=== PATIENT | female | born 1975 | race Hispanic/Latino ===

== ENCOUNTER → 2023-11-16 08:35 | Outpatient (CLI) | payer OTHER, SELFPAY ==
--- NOTE | 2023-11-16 08:38 | DI.MG.S_ITS ---
BILATERAL DIGITAL SCREENING MAMMOGRAM 3D/2D WITH CAD: 11/16/2023 CLINICAL: Routine screening. Comparison is made to exams dated: 09/18/2022 mammogram, 07/29/2021 mammogram, and 07/22/2020 mammogram - outside location. There are scattered areas of fibroglandular density in both breasts (category b / 25%-50% glandular tissue). Current study was also evaluated with a Computer Aided Detection (CAD) system. No significant masses, calcifications, or other findings are seen in either breast. There has been no significant interval change. IMPRESSION: NEGATIVE There is no mammographic evidence of malignancy. A 1 year screening mammogram is recommended. Based on the Tyrer Cuzick model (a risk assessment model) the patient's lifetime risk is 7.9% and her 10 year risk is 1.8%. According to the ACR, ACS, and NCCN guidelines, an annual breast MRI exam along with mammogram is recommended if the patient's lifetime risk is 20% or greater. This exam was interpreted at Station ID: [id number]. NOTE: For mammograms, a report in lay terms will be sent to the patient. Approximately 15% of breast malignancies will not be visualized mammographically. In the management of a palpable breast mass, a negative mammogram must not discourage biopsy of a clinically suspicious lesion. Electronically Signed By: Nila Keith M.D., PH.D momo/janelle:11/16/2023 15:23:19 letter sent: Normal Exam ACR BI-RADS Category 1: Negative [id number]
== END ==
LOC: MAMMO 08:37
PROVIDERS: PCP Student in an Organized Health Care Education/Training Program; Referring Provider Student in an Organized Health Care Education/Training Program; Visit Provider Student in an Organized Health Care Education/Training Program
DX: Z12.31 Encounter for screening mammogram for malignant neoplasm of breast (principal); R92.323 Mammographic fibroglandular density, bilateral breasts
CPT/HCPCS: 77063; 77067

== ENCOUNTER → 2024-10-19 15:20 | Outpatient (CLI) | payer OTHER, SELFPAY ==
--- NOTE | 2024-10-19 15:22 | DI.CT.S_ITS ---
PROCEDURE: CT LUNG LOW DOSE SCREENING INDICATIONS: screening for lung cancer TECHNIQUE: Noncontrast 2.0-2.5 mm thick sections acquired from the pulmonary apices to the posterior costophrenic angles. 7 mm thick axial MIP, and 5 mm coronal and sagittal reformats were then acquired. For radiation dose reduction, the following was used: automated exposure control, adjustment of mA and/or kV according to patient size. COMPARISON: None. FINDINGS: Image quality: Diagnostic. Lower Neck: No enlarged lymph nodes. Thyroid: No thyroid nodules which require sonographic follow up, per consensus guidelines. Axillae: No enlarged lymph nodes. Chest Wall: Unremarkable. Bones: Unremarkable. Lungs and Pleura: No pneumothorax or pleural effusions. No consolidation or suspicious nodules. Heart: Heart size is normal. No pericardial effusion. Thoracic Vessels: The aorta and pulmonary arteries demonstrate normal size. Mediastinum and Mavis: No enlarged lymph nodes. Esophagus: No wall thickening. No hiatal hernia. Upper Abdomen: Visualized upper abdomen solid organs and bowel loops appear normal. IMPRESSION: No suspicious pulmonary nodules. LUNG-RADS 1; continued annual screening, if eligible. Clinically Significant Non-pulmonary Findings: None. Dictated by: Juan Calix M.D. on 10/19/2024 at 16:53 Approved by: Juan Calix M.D. on 10/19/2024 at 16:54
== END ==
PROVIDERS: PCP Nurse Practitioner Family; Referring Provider Nurse Practitioner Family; Visit Provider Nurse Practitioner Family
DX: Z12.2 Encounter for screening for malignant neoplasm of respiratory organs (principal)
CPT/HCPCS: 71271

== ENCOUNTER → 2025-01-09 17:20 | Outpatient (CLI) | payer OTHER, SELFPAY ==
--- NOTE | 2025-01-09 17:21 | DI.MG.S_ITS ---
MM screening mammo BI: 01/09/2025. BI-RADS: 1 CLINICAL: 49-year old female for bilateral screening mammogram. Tyrer-Cuzick lifetime risk of 6.1%. No personal or first-degree family history of breast cancer. PRIOR EXAMS 11/16/2023 outside priors 09/18/2022, and 07/29/2021. MAMMOGRAPHY TECHNIQUE: 2D and 3D (tomosynthesis) digital mammographic views obtained, with additional images as needed for full coverage. Current study was also evaluated with a Computer Aided Detection (CAD) system. DENSITY C. The breasts are heterogeneously dense, which may obscure small masses. MAMMOGRAPHY FINDINGS Bilateral: No suspicious mass, asymmetry, microcalcification, or other abnormality seen. No significant change from comparison. IMPRESSION: * No evidence of malignancy. RECOMMENDATIONS Bilateral * Annual screening mammography. OVERALL ASSESSMENT CATEGORY BI-RADS-1: Negative. The [employer] recommends annual screening mammography beginning at age 40 for women with average risk of breast cancer. ELECTRONICALLY SIGNED: Sally Verduzco M.D. on 01/10/2025 at 08:45:21 AM PT Interpreting Station ID: [id number]
== END ==
PROVIDERS: PCP Nurse Practitioner Family; Referring Provider Nurse Practitioner Family; Visit Provider Nurse Practitioner Family
DX: Z12.31 Encounter for screening mammogram for malignant neoplasm of breast (principal); R92.333 Mammographic heterogeneous density, bilateral breasts
CPT/HCPCS: 77063; 77067

== ENCOUNTER 2025-05-14 09:53 | Day surgery (SDC) | payer OTHER, SELFPAY ==
[2025-05-14 10:18] VITALS: BP 103/69; PULSE 63; RESP 16; TEMP 36.6; O2SAT 98
--- NOTE | 2025-05-14 10:55 | PM.HP.IH.1 ---
History of Present Illness History of Present Illness Date Patient Seen: 05/14/25 Chief complaint: Screening Colonoscopy [facility] Medical History (Updated 12/03/23 @ 20:35 by Francesca Bocanegra) Human papilloma virus Abnormal Pap smear of cervix Surgical History (Updated 12/03/23 @ 20:35 by Francesca Bocnaegra) History of section (~04/1997) Family History (Updated 12/03/23 @ 20:36 by Francesca Bocanegra) Father Hypertension Mother Diabetes mellitus Hyperlipidemia Brother Mental health problem Social History Smoking Status: Never smoker alcohol intake: current Meds Home Medications and Allergies Allergies Allergy/AdvReac Type Severity Reaction Status Date / Time No Known Drug Allergies Allergy Verified 05/14/25 10:16 Exam Vital Signs (past 8 hours): - 05/14/25 10:18 Temperature 97.8 F Pulse Rate 63 Respiratory Rate 16 Blood Pressure 103/69 Pulse Oximetry 98 Oxygen Delivery Method Room Air Oxygen Delivery Method Room Air Narrative Exam Narrative: Oropharynx free of lesions Assessment & Plan Assessment & Plan narrative: For screening colonoscopy. Risks, benefits, alternatives have been explained. Time-Based Coding :: [TOTAL MINUTES] spent with patient and on the chart (including review of chart, obtaining history, exam, reviewing outside data, placing orders, documenting exam and treatment plan, and counseling patient) on [DATE]. 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
--- NOTE | 2025-05-14 10:56 | PM.OP.COLON ---
Operative Date/Time/Diagnoses Date of procedure: 05/14/25 Time of procedure: 11:14 Pre-op diagnosis: See indication and findings Post-op diagnosis: same Procedure & Clinicians Study performed: Colonoscopy Same procedure(s) as scheduled: Yes Indications: Screening Surgeon: Ban Graff Anesthesia Type: Other Procedure Notes Procedure in detail: After informed consent was obtained the patient was placed in left lateral decubitus position. The video colonoscope was introduced the rectum slowly advanced cecum. Preparation was good. On slow withdrawal mucosa was carefully examined. The scope was removed. The patient tolerated procedure well. Blood loss none Complications none Sedation mac Findings 1. Normal colonoscopy to cecum Patient should have follow-up colonoscopy in 10 years
[2025-05-14] MEDS: LACTATED RINGERS 1,000 ML 42 ML IV (11:00)
[2025-05-14 11:15] VITALS: BP 87/54; PULSE 92; RESP 15; TEMP 36.9; O2SAT 94
[2025-05-14 11:20] VITALS: BP 86/55; PULSE 85; RESP 14; O2SAT 95
[2025-05-14 11:25] VITALS: BP 87/56; PULSE 79; RESP 15; O2SAT 95
[2025-05-14 11:32] VITALS: BP 102/56; PULSE 83; RESP 16; TEMP 36.8; O2SAT 98
== END 2025-05-14 11:48 | disposition home or self-care (01) ==
PROVIDERS: PCP Nurse Practitioner Family; Referring Provider Internal Medicine Gastroenterology; Visit Provider Internal Medicine Gastroenterology
PROC: 0DJD8ZZ Inspection of Lower Intestinal Tract, Via Natural or Artificial Opening Endoscopic (ICD-10-PCS; CPT 45378; principal; 2025-05-14 11:00)
DX: Z12.11 Encounter for screening for malignant neoplasm of colon (principal)
CPT/HCPCS: 45378; J2704